=== PATIENT | female | born 1930 | race Caucasian/White ===

== ENCOUNTER 2017-02-05 14:32 | Inpatient (IN) | payer MEDICARE, MEDICAID ==
[2017-02-05 15:12] LABS: % BASOPHILS 1.1 % (0.0-2.0); % EOSINOPHILS 1.5 % (0.0-5.0); % LYMPHOCYTES 9.3 % (20.0-50.0); % MONOCYTES 7.5 % (2.0-10.0); % NEUTROPHILS 80.6 % (40.0-80.0); HEMATOCRIT 39.7 % (35.0-45.0); HEMOGLOBIN 13.1 gm/dL (11.7-16.1); MEAN CELL VOLUME 87.1 fl (81-100); MEAN CORPUSCULAR HEMOGLOBIN 28.8 pg (27.0-31.0); MEAN CORPUSCULAR HGB CONC 33.1 pg (28.0-36.0); MEAN PLATELET VOLUME 8.3 fl; NEUTROPHILE ABSOLUTE 8.5 Th/cmm (1.8-8.0); PLATELET COUNT 284 Th/cmm (150-400); RED BLOOD COUNT 4.56 Mil/cmm (3.80-5.20); WHITE BLOOD COUNT 10.6 Th/cmm (4.8-10.8)
[2017-02-05 15:28] LABS: INR 0.99 (0.5-1.4); PROTHROMBIN TIME (TEST) 10.3 SECONDS (9.5-11.5)
[2017-02-05 15:30] LABS: ALB/GLOB RATIO 1.1 (1.0-1.8); ALKALINE PHOSPHATASE 86 U/L (34-104); ANION GAP 8.7 (7.0-16.0); BILIRUBIN,TOTAL 0.5 mg/dL (0.3-1.0); BUN - UREA NITROGEN 40 mg/dL (7-25); BUN/CREATININE RATIO 26.7; CARBON DIOXIDE 25.5 mEq/L (21.0-31.0); CHLORIDE 108 mEq/L (98-107); CREATININE - SERUM 1.5 mg/dL (0.6-1.2); GLUCOSE 136 mg/dL (70-105); POTASSIUM SERUM 4.2 mEq/L (3.5-5.1); SGOT 14 U/L (13-39); SGPT/ALT 5 U/L (7-52); SODIUM SERUM 138 mEq/L (136-145)
--- NOTE | 2017-02-05 15:30 | ED Physician Chart ---
Chief Complaint/HPI - Patient Information Date Seen:: 02/05/17 Time Seen:: 15:16 Chief Complaint:: CONFUSED History of Present Illness:: THIS IS AN 86 YO SENT HERE FOR AN EVALUATION OF HER DIARRHEA. SHE IS DEMENTED AND CONFUSED, UNABLE TO GIVE A REVIEW OF SYSTEMS AND MEDICAL HISTORY. Vitals:: Vital Signs - 8 hr 02/05/17 15:10 Temp 97.8 F HR 54 RR 18 BP 127/74 O2 Sat % 98 Historian:: Medical Records Review:: Nurse's Note Reviewed Review of Systems - Review of Systems General/Constitutional: Other (PT UNABLE TO GIVE REVIEW OF SYSTEMS) Past Medical History - Past Medical History Obtainable: No Past Medical History: Dementia Family History: None Social History: Non Smoker, No Alcohol, No Drug Use Surgical History: None Psychiatricy History: Dementia Medication: Reviewed Family Medical History - Family Member Mother History Unknown: Yes Physical Exam - Physical Examination General/Constitutional: Awake, Well-developed, well-nourished, Alert, No distress, GCS 15, Non-toxic appearing, Ambulatory Other Gen/Cons comments:: CONFUSED BUT COOPERATIVE Head: Atraumatic Eyes: Lids, conjuctiva normal, PERRL, EOMI Skin: Nl inspection, No rash, No skin lesions, No ecchymosis, Well hydrated, No lymphadenopathy ENMT: External ears, nose nl, Nasal exam nl, Lips, teeth, gums nl Neck: Nontender, Full ROM w/o pain, No JVD, No nuchal rigidity, No bruit, No mass, No stridor Respiratory: Nl effort/Exclusion, Clear to Auscultation, No Wheeze/Rhonchi/Rales Cardio Vascular: RRR, No murmur, gallop, rubs, NL S1 S2 GI: No tenderness/rebounding/guarding, No organomegaly, No hernia, Normal BS's, Nondistended, No mass/bruits, No McBurney tenderness : No CVA tenderness Extremities: No tenderness or effusion, Full ROM, normal strength in all extremities, No edema, Normal digits & nails Neuro/Psych: Alert/oriented, DTR's symmetric, Normal sensory exam, Normal motor strength, Judgement/insight normal, Mood normal, Normal gait, No focal deficits Misc: normal gait, Normal back, No paraspinal tenderness Labs/Radiology/EKG Results - Lab Results Results: Laboratory Tests 02/05/17 15:00 WBC 10.6 RBC 4.56 Hgb 13.1 Hct 39.7 MCV 87.1 MCH 28.8 MCHC Differential 33.1 RDW 13.0 Plt Count 284 MPV 8.3 Neutrophils % 80.6 H Lymphocytes % 9.3 L Monocytes % 7.5 Eosinophils % 1.5 Basophils % 1.1 Abnormal Lab Results 02/05/17 02/05/17 02/05/17 15:00 15:00 15:00 WBC 10.6 RBC 4.56 Hgb 13.1 Hct 39.7 MCV 87.1 MCH 28.8 MCHC Differential 33.1 RDW 13.0 Plt Count 284 MPV 8.3 Neutrophils % 80.6 H Lymphocytes % 9.3 L Monocytes % 7.5 Eosinophils % 1.5 Basophils % 1.1 PT 10.3 INR 0.99 PTT (Actin FS) 23.6 L Sodium Potassium Chloride Carbon Dioxide Anion Gap BUN Creatinine Est GFR ( Amer) Est GFR (Non-Af Amer) BUN/Creatinine Ratio Glucose Calcium Total Bilirubin AST ALT Alkaline Phosphatase Troponin I Total Protein Albumin Globulin Albumin/Globulin Ratio Triglycerides 102 Cholesterol 219 H LDL Cholesterol Direct 162 HDL Cholesterol 51 TSH 02/05/17 02/05/17 02/05/17 15:00 15:00 15:00 WBC RBC Hgb Hct MCV MCH MCHC Differential RDW Plt Count MPV Neutrophils % Lymphocytes % Monocytes % Eosinophils % Basophils % PT INR PTT (Actin FS) Sodium 138 Potassium 4.2 Chloride 108 H Carbon Dioxide 25.5 Anion Gap 8.7 BUN 40 H Creatinine 1.5 H Est GFR ( Amer) TNP Est GFR (Non-Af Amer) TNP BUN/Creatinine Ratio 26.7 Glucose 136 H Calcium 10.0 Total Bilirubin 0.5 AST 14 ALT 5 L Alkaline Phosphatase 86 Troponin I 0.02 Total Protein 7.8 Albumin 4.0 Globulin 3.8 Albumin/Globulin Ratio 1.1 Triglycerides Cholesterol LDL Cholesterol Direct HDL Cholesterol TSH 3.29 - EKG Interpretations EKG Time:: 15:08 Rate & Rhythm: 48 SINUS BRADYCARDIA Eidson: RIGHT AXIS Intervals: NO ECTOPY Assessment - Assessment General Assessment: DEMENTIA AND BRADYCARDIA ED Septic Shock - . Is Septic Shock (SBP<90, OR Lactate>4 mmol\L) present?: No - <6hrs of presentation: Vital Signs: Vital Signs - 8 hr 02/05/17 15:10 Temp 97.8 F HR 54 RR 18 BP 127/74 O2 Sat % 98 Reassessment (Disposition) - Reassessment Reassessment Condition:: Unchanged - Diagnosis Diagnosis:: DEHYDRATION DEMENTIA DIARRHEA - Patient Disposition Discharge/Transfer:: Acute Care w/in this hosp Admitting Medical Physician:: Josef Marcelino Condition at Disposition:: Unchanged ED Discharge Plan - Patient Disposition Admit/Discharge/Transfer: Acute Care w/in this hosp Condition at Disposition: Unchanged
[2017-02-05 15:31] LABS: CHOLESTEROL 219 mg/dL (<200); TRIGLYCERIDES 102 mg/dL (<150)
[2017-02-05] MEDS ORDERED: Sodium Chloride 0.45% 500 ML IV ONE (15:38)
--- NOTE | 2017-02-05 17:04 | Diagnostic Imaging Report ---
Portable chest x-ray HISTORY: Shortness of breath The heart is enlarged. Atherosclerotic calcification seen in the aorta. No acute focal pulmonary processes. A small calcific density is noted adjacent to the lateral aspect of the right humeral head consistent with changes of calcific tendinitis. Surgical clips project over the lower mid chest. IMPRESSION: 1. Cardiomegaly with atherosclerotic vascular changes 2. No acute focal pulmonary processes
[2017-02-05] MEDS: Sodium Chloride 0.9% 1,000 ML IV SCH (20:55)
[2017-02-05 22:05] VITALS: BP 145/79
[2017-02-06 07:19] LABS: % BASOPHILS 0.4 % (0.0-2.0); % EOSINOPHILS 2.6 % (0.0-5.0); % LYMPHOCYTES 7.2 % (20.0-50.0); % MONOCYTES 7.9 % (2.0-10.0); % NEUTROPHILS 81.9 % (40.0-80.0); MEAN CELL VOLUME 86.2 fl (81-100); MEAN CORPUSCULAR HEMOGLOBIN 28.9 pg (27.0-31.0); MEAN CORPUSCULAR HGB CONC 33.5 pg (28.0-36.0); MEAN PLATELET VOLUME 8.7 fl; NEUTROPHILE ABSOLUTE 7.8 Th/cmm (1.8-8.0); PLATELET COUNT 272 Th/cmm (150-400); RED BLOOD COUNT 4.17 Mil/cmm (3.80-5.20); RED CELL DISTRIBUTION WIDTH 12.9 % (11.5-20.0); WHITE BLOOD COUNT 9.4 Th/cmm (4.8-10.8)
[2017-02-06 07:50] LABS: ALB/GLOB RATIO 0.9 (1.0-1.8); ALKALINE PHOSPHATASE 83 U/L (34-104); ANION GAP 8.8 (7.0-16.0); BILIRUBIN,TOTAL 0.8 mg/dL (0.3-1.0); BUN - UREA NITROGEN 31 mg/dL (7-25); BUN/CREATININE RATIO 25.8; CALCIUM SERUM 9.2 mg/dL (8.6-10.3); CARBON DIOXIDE 26.9 mEq/L (21.0-31.0); CHLORIDE 105 mEq/L (98-107); CREATININE - SERUM 1.2 mg/dL (0.6-1.2); GLUCOSE 100 mg/dL (70-105); MAGNESIUM 2.1 mg/dL (1.9-2.7); POTASSIUM SERUM 3.7 mEq/L (3.5-5.1); SGOT 20 U/L (13-39); SGPT/ALT 6 U/L (7-52); SODIUM SERUM 137 mEq/L (136-145)
[2017-02-06] MEDS ORDERED: FLUOCINONIDE 0.05% TP SCH (09:00)
[2017-02-06] MEDS ORDERED: Econazole Nitrate 1% Cream 15 gm Tube TP SCH (09:00)
[2017-02-06] MEDS ORDERED: [UNRECOGNIZED DRUG - MIXTURE] SCH (09:00)
[2017-02-06] MEDS ORDERED: CLOBETASOL PROPIONATE 0.05% TP SCH (09:00)
[2017-02-06] MEDS: Ciprofloxacin 200mg Premix PB 200 MG/100 ML BAG IV SCH ×2 (11:40→22:24)
[2017-02-07] MEDS: Sodium Chloride 0.9% 1,000 ML IV SCH (01:48)
[2017-02-07 06:20] LABS: % BASOPHILS 0.8 % (0.0-2.0); % LYMPHOCYTES 17.4 % (20.0-50.0); % MONOCYTES 14.6 % (2.0-10.0); % NEUTROPHILS 64.2 % (40.0-80.0); HEMATOCRIT 34.3 % (35.0-45.0); HEMOGLOBIN 11.2 gm/dL (11.7-16.1); MEAN CORPUSCULAR HEMOGLOBIN 28.5 pg (27.0-31.0); MEAN CORPUSCULAR HGB CONC 32.7 pg (28.0-36.0); MEAN PLATELET VOLUME 8.4 fl; NEUTROPHILE ABSOLUTE 5.4 Th/cmm (1.8-8.0); PLATELET COUNT 248 Th/cmm (150-400); RED BLOOD COUNT 3.95 Mil/cmm (3.80-5.20); RED CELL DISTRIBUTION WIDTH 12.8 % (11.5-20.0); WHITE BLOOD COUNT 8.5 Th/cmm (4.8-10.8)
[2017-02-07 06:45] LABS: ANION GAP 5.5 (7.0-16.0); BUN - UREA NITROGEN 20 mg/dL (7-25); CALCIUM SERUM 8.8 mg/dL (8.6-10.3); CARBON DIOXIDE 27.3 mEq/L (21.0-31.0); CHLORIDE 108 mEq/L (98-107); GLUCOSE 105 mg/dL (70-105); MAGNESIUM 1.9 mg/dL (1.9-2.7); POTASSIUM SERUM 3.8 mEq/L (3.5-5.1); SODIUM SERUM 137 mEq/L (136-145)
[2017-02-07] MEDS: Ciprofloxacin 200mg Premix PB 200 MG/100 ML BAG IV SCH ×2 (10:12→21:59)
[2017-02-07] MEDS ORDERED: Acetaminophen 500 MG TAB PO PRN (20:55)
[2017-02-08 06:21] LABS: % BASOPHILS 0.6 % (0.0-2.0); % EOSINOPHILS 6.8 % (0.0-5.0); % LYMPHOCYTES 26.3 % (20.0-50.0); % MONOCYTES 14.1 % (2.0-10.0); % NEUTROPHILS 52.2 % (40.0-80.0); HEMOGLOBIN 10.3 gm/dL (11.7-16.1); MEAN CELL VOLUME 87.2 fl (81-100); MEAN CORPUSCULAR HEMOGLOBIN 29.3 pg (27.0-31.0); MEAN CORPUSCULAR HGB CONC 33.6 pg (28.0-36.0); MEAN PLATELET VOLUME 8.3 fl; NEUTROPHILE ABSOLUTE 3.4 Th/cmm (1.8-8.0); PLATELET COUNT 211 Th/cmm (150-400); RED BLOOD COUNT 3.53 Mil/cmm (3.80-5.20); RED CELL DISTRIBUTION WIDTH 12.7 % (11.5-20.0)
[2017-02-08 07:02] LABS: ANION GAP 4.3 (7.0-16.0); BUN - UREA NITROGEN 13 mg/dL (7-25); BUN/CREATININE RATIO 14.4; CARBON DIOXIDE 27.3 mEq/L (21.0-31.0); CHLORIDE 107 mEq/L (98-107); CREATININE - SERUM 0.9 mg/dL (0.6-1.2); GLUCOSE 95 mg/dL (70-105); MAGNESIUM 1.8 mg/dL (1.9-2.7); POTASSIUM SERUM 3.6 mEq/L (3.5-5.1); SODIUM SERUM 135 mEq/L (136-145)
[2017-02-08 07:24] LABS: HEMATOCRIT 30.8 % (35.0-45.0); WHITE BLOOD COUNT 6.4 Th/cmm (4.8-10.8)
[2017-02-08] MEDS: Ciprofloxacin 200mg Premix PB 200 MG/100 ML BAG IV SCH (11:03)
== END 2017-02-08 12:55 | disposition home or self-care (01) | DRG 392 ==
LOC: ER 14:32 → TELE 17:40
PROVIDERS: ADMIT Internal Medicine; ATTEND Internal Medicine
DX: A09 Infectious gastroenteritis and colitis, unspecified (principal); N17.9 Acute kidney failure, unspecified; F03.90 Unspecified dementia, unspecified severity, without behavioral disturbance, psychotic disturbance, mood disturbance, and anxiety; R00.1 Bradycardia, unspecified; E86.0 Dehydration; I10 Essential (primary) hypertension; Z66 Do not resuscitate
CPT/HCPCS: 36415-UA; 71010-TC; 80048-TC; 80053-TC; 80061-TC; 83735-TC; 84443-TC; 84484-TC; 85007-TC; 85025-TC; 85027-TC; 85610-TC; 85730-TC; 86592-TC; 87230-TC; 93005; 97530; J0744; J1644; J3475; J7030; X3904; Z7610